=== PATIENT | female | born 1955 | race Caucasian/White ===

== ENCOUNTER 2022-11-16 14:26 | Emergency (ER) | payer BC ==
[~2022-11-16] VITALS: Ht 167.6 cm; Wt 72.6 kg
[2022-11-16 14:26] VITALS: BP_SYST 156
--- NOTE | 2022-11-16 14:26 | NUR ---
BROUGHT BACK TO BED #2 VIA WHEELCHAIR AND TRIAGED. REPORT GIVEN TO CARLOS ALBERTO
--- NOTE | 2022-11-16 14:42 | NUR ---
PT BIB FROM HOME C/O HEAD AND NECK PAIN FROM SYNCOPAL FALL AT 1330. PT STATES HAS HEAD AND NECK PAIN 5/10. PAIN IS THROBBING AND DOES NOT RADIATE. PT STATES GAVE BLOOD AT [facility] THEN DROVE HOME AND HAD LUNCH. PT STATES HAD DIARRHEA AND STOOD UP TO LEAVE RESTROOM. NEXT SHE WAS FOUND BY @ 1400. PT HAS SMALL HEMATOMA ON BACK OF THE HEAD. PT RESTING IN BED ON WITH RAILS UP VSS.
--- NOTE | 2022-11-16 14:45 | NUR ---
ER at bedside examining patient.
--- NOTE | 2022-11-16 15:22 | NUR ---
PT RETURED FROM CT AND PLACED BACK ON MONITOR. BEDIDE VSS PT RESTING COMFORTABLY
--- NOTE | 2022-11-16 15:46 | NUR ---
Bunny freeman in [facility] - 11/16/22 at 1548 by [email or web address] ANGEL Gonzalez at bedside examining patient.
[2022-11-16 16:01] LABS: BASOPHILS % (AUTO) 0.2 % (0.0-2.0); EOSINOPHILS % (AUTO) 0.2 % (0.0-4.0); HEMATOCRIT 40.4 % (36-48); HEMOGLOBIN 13.5 g/dL (12.0-16.0); LYMPHOCYTES # (AUTO) 1.1 K/uL (1.0-5.5); LYMPHOCYTES % (AUTO) 8.2 % (20.5-51.5); MEAN CORPUSCULAR HEMOGLOBIN 30 pg (27-31); MEAN CORPUSCULAR HGB CONC 34 % (32-36); MEAN CORPUSCULAR VOLUME 91 fL (79.0-98.0); MONOCYTES # (AUTO) 0.5 K/uL (0.0-1.0); MONOCYTES % (AUTO) 4.2 % (1.7-9.3); NEUTROPHILS # (AUTO) 11.2 K/uL (1.8-7.7); NEUTROPHILS % (AUTO) 87.2 % (40.0-70.0); PLATELET COUNT (AUTO) 222 K/uL (130-430); RED BLOOD CELL COUNT(AUTO) 4.45 MIL/uL (4.2-6.2); RED CELL DISTRIBUTION WIDTH 12.8 % (9.0-15.0); WHITE BLOOD COUNT (AUTO) 12.9 K/uL (4.8-10.8)
[2022-11-16 16:45] LABS: ALANINE AMINOTRANSFERASE 72 U/L (12-78); ALBUMIN 3.7 g/dL (3.4-4.8); ANION GAP 9 (5-15); ASPARTATE AMINOTRANSFERASE 50 U/L (10-37); CHLORIDE 102 mmol/L (98-107); CREATININE 0.71 mg/dL (0.55-1.30); GFR AFRICAN AMERICAN 107 mL/min (>90); GLUCOSE 149 mg/dL (70-99); TOTAL BILIRUBIN 0.4 mg/dL (0.0-1.0); UREA NITROGEN, BLOOD 12 mg/dL (8-21)
[2022-11-16 16:57] LABS: CALCIUM 8.9 mg/dL (8.4-11.0)
--- NOTE | 2022-11-16 16:59 | NUR ---
ER at bedside examining patient.
[2022-11-16] MEDS ORDERED: IBUP-1969 PO (17:01)
[2022-11-16] MEDS ORDERED: SOM350 PO (17:01)
[2022-11-16] MEDS ORDERED: IBUPROFEN 800 MG TABLET PO ONE (17:15)
[2022-11-16 17:31] VITALS: BP_SYST 156
--- NOTE | 2022-11-16 17:33 | NUR ---
DPatient given written and verbal discharge instructions and verbalizes understanding. ER MD discussed with patient the results and treatment provided. Patient in stable condition. ID arm band removed. Rx of IBUPROFEN AND CARISOPRODOL given. Patient educated on SYNCOPY and to follow up with PMD. Pain Scale . Opportunity for questions provided and answered. Medication side effect fact sheet provided.
== END 2022-11-16 17:31 | disposition home or self-care (01) ==
LOC: SED 14:26
DX: S13.4XXA Sprain of ligaments of cervical spine, initial encounter (principal); S00.93XA Contusion of unspecified part of head, initial encounter; R55 Syncope and collapse; Z88.1 Allergy status to other antibiotic agents; Z88.5 Allergy status to narcotic agent; Z91.040 Latex allergy status; Z79.899 Other long term (current) drug therapy; X58.XXXA Exposure to other specified factors, initial encounter; Y93.89 Activity, other specified; Y92.89 Other specified places as the place of occurrence of the external cause; Y99.8 Other external cause status
CPT/HCPCS: 36415; 70450-TC; 71045; 72125-TC; 76376; 80053; 83605; 84484; 85025; 93005; 99285